=== PATIENT | female | born 1990 | race Caucasian/White ===

== ENCOUNTER 2021-12-04 04:22 | Day surgery (SDC) | payer OTHER ==
[2021-12-02 13:58] VITALS: BMI 27.4
[2021-12-04] MEDS ORDERED: oxyCODONE HCL 5 MG TABLET PO PRN (08:41)
[2021-12-04] MEDS ORDERED: ONDANSETRON 4 MG/2 ML VIAL IVPUSH PRN (08:41)
[2021-12-04] MEDS ORDERED: LACTATED RINGERS SOLUTION 1,000 ML IV SCH (08:45)
[2021-12-04] MEDS ORDERED: BUPIVACAINE HCL/PF 0.5% (5MG/ML) 10 ML VIAL ONE (08:53)
[2021-12-04] MEDS ORDERED: BUPIVACAINE LIPOSOME/PF (EXPAREL) 266 MG/20 ML VIAL ONE (08:53)
[2021-12-04] MEDS ORDERED: MIDAZOLAM HCL 2 MG/2 ML SINGLE DOSE VIAL ONE (08:55)
[2021-12-04] MEDS ORDERED: LIDOCAINE HCL/PF 2% SDV 5ML VIAL ONE (09:08)
[2021-12-04] MEDS ORDERED: PROPOFOL 20 ML ONE ×2 (09:08→10:01)
[2021-12-04] MEDS ORDERED: ceFAZolin 2 GRAM PREMIX BAG IVPB ONE (09:24)
[2021-12-04] MEDS ORDERED: ceFAZolin SODIUM 1 GM VIAL ONE (09:36)
[2021-12-04 12:07] VITALS: RESP 18; TEMP 97.9
[2021-12-04 13:31] VITALS: BP 119/72; PULSE 69
== END 2021-12-04 13:00 | disposition home or self-care (01) ==
LOC: JASU-SURG 04:22
PROVIDERS: ATTEND Orthopaedic Surgery
PROC: 0MRN4JZ Replacement of Right Knee Bursa and Ligament with Synthetic Substitute, Percutaneous Endoscopic Approach (ICD-10-PCS; principal; 2021-12-04 08:45)
DX: S83.511A Sprain of anterior cruciate ligament of right knee, initial encounter (principal); X58.XXXA Exposure to other specified factors, initial encounter; Y93.9 Activity, unspecified; Y92.9 Unspecified place or not applicable; Y99.9 Unspecified external cause status
CPT/HCPCS: 29888; C1713; 94760; 97116-GP; C1889